=== PATIENT | female | born 1985 | race Caucasian/White ===

== ENCOUNTER → 2020-01-15 13:25 | Outpatient (BNVA) | payer MEDICAID, SELFPAY | PROVIDERS: PCP Internal Medicine; Referring Provider Internal Medicine; Visit Provider Internal Medicine | DX: J45.909 Unspecified asthma, uncomplicated (principal); J33.9 Nasal polyp, unspecified; E66.01 Morbid (severe) obesity due to excess calories; Z68.42 Body mass index [BMI] 45.0-49.9, adult; G47.33 Obstructive sleep apnea (adult) (pediatric); G47.34 Idiopathic sleep related nonobstructive alveolar hypoventilation; Z79.899 Other long term (current) drug therapy | CPT/HCPCS: 99202 ==

== ENCOUNTER 2020-02-19 08:42 | Outpatient (REF) | payer MEDICAID, SELFPAY ==
--- NOTE | 2020-02-19 01:00 | PFT_ITS ---
FLOWS: FEV1 of 90% of predicted at 2.57 L. FVC 88% of predicted at 2.99 L. FEV1 to FVC ratio of 0.86. No bronchodilator response. LUNG VOLUMES: Total lung capacity 91% of predicted at 4.21 L. Residual volume 104% of predicted at 1.38 L. Slow vital capacity 86% of predicted at 2.83 L. Expiratory reserve volume 18% of predicted at 0.21 L. Diffusion capacity is normal. IMPRESSION: No obstructive or restrictive ventilatory defect. No bronchodilator response. Decreased expiratory reserve volume suggests extrathoracic restriction likely secondary to abdominal obesity. Alberto Sánchez MD AP/MODL / [id number]
== END 2020-02-19 08:43 | disposition home or self-care (01) ==
LOC: HO.RESP 08:42
PROVIDERS: Visit Provider Internal Medicine
DX: J45.909 Unspecified asthma, uncomplicated (principal); G47.33 Obstructive sleep apnea (adult) (pediatric)
CPT/HCPCS: 94060; 94727; 94729